=== PATIENT | male | born 1965 | race Caucasian/White ===

== ENCOUNTER 2017-10-07 11:43 | Emergency (ER) | payer OTHER, SELFPAY ==
[2017-10-07 11:46] VITALS: BP 146/87; PULSE 85; PULSE 87; RESP 14; TEMP 36.8; O2SAT 100; BMI 22.8
--- NOTE | 2017-10-07 12:07 | EKG12_ITS ---
Test Reason : CP Blood Pressure : / mmHG Vent. Rate : 087 BPM Atrial Rate : 087 BPM P-R Int : 146 ms QRS Dur : 080 ms QT Int : 362 ms P-R-T Axes : 082 069 066 degrees QTc Int : 435 ms Normal sinus rhythm Normal ECG Confirmed by KAREN SUMMERS ([id number]), editor index ALMA SAWYER ([id number]) on 10/12/2017 1:46:16 PM Referred By: TODD Confirmed By:KAREN SUMMERS
--- NOTE | 2017-10-07 12:07 | RAD_ITS ---
STUDY: X-RAY CHEST REASON FOR EXAM: Male, 51 years old. Chest pressure. TECHNIQUE: Single AP portable view of the chest. COMPARISON: Comparison is made with prior study dated January 15, 2017. FINDINGS: EKG electrodes are seen. Hyperinflation. The lungs are clear. There is no demonstrated pleural abnormality. Normal size heart. Normal mediastinum and catrachito. Normal visualized pulmonary arteries. Normal visualized aortic arch and descending thoracic aorta. Normal visualized thoracic spine. Normal visualized ribs, clavicles, and shoulders. There is no demonstrated abnormality of the visualized soft tissue structures of the upper abdomen. RAD/Chest 1 View (Portable) IMPRESSION: Hyperinflation. The lungs are clear. Electronically Signed: Raza Momin MD at 12:33 EST Tel [phone], Service support ,
[2017-10-07] MEDS: Aspirin 81 MG TAB.CHEW 324 MG PO (12:13)
[2017-10-07 12:42] LABS: Hematocrit 45.2 % (40-54); Hemoglobin 15.6 g/dl (13.0-16.5); Mean Corpuscular Volume 91.7 fL (80-94); Red Blood Count 4.93 M/mm3 (4.6-6.2); White Blood Count 5.8 K/mm3 (4.4-11.0)
[2017-10-07 12:43] LABS: Basophil% 0.3 % (0-1); Eosinophils% 1.9 % (0-5); Mean Corp Hgb Conc 34.5 g/gl (32-36); Mean Corpuscular Hgb 31.6 pg (27.0-32.0); Mean Platelet Vol. 8.9 fl (6.2-12.0); Monocyte% 5.7 % (0-10); Neutrophil # 2.97 X10^3/uL (2.7-7.7); Neutrophil % 51.1 % (47-70); Platelet Count 221 K/mm3 (150-450); RBC Distribution Width CV 12.2 % (11.6-14.6); RBC Distribution Width SD 40.9 fl (35.1-43.9)
[2017-10-07 12:44] LABS: Absolute Lymphocyte Count 2.38 X10^3/ul (0.83-4.51); Basophil# 0.02 X10^3/uL; Eosinophil# 0.11 X10^3/uL; Lymphocyte # 2.38 X10^3/ul (4.0); Monocyte# 0.33 X10^3/uL
[2017-10-07 12:46] LABS: Anion Gap 8 (5-15); BUN 19 mg/dL (7-18); Calcium,Total 9.3 mg/dL (8.5-10.1); Chloride 103 mmol/L (98-107); EST Glomerular Filtration Rate 83 mL/min (>60); Est Glom Filt Rate - Afr Amer 100 mL/min (>60); Estimated Creatinine Clearance 92.32 ml/min; Glucose 84 mg/dL (74-106); Potassium 3.3 mmol/L (3.5-5.1); Sodium Level 139 mmol/L (136-145)
[2017-10-07 13:02] VITALS: BP 112/70; PULSE 71; RESP 14; O2SAT 98
--- NOTE | 2017-10-07 13:07 | ED.DCSUM_ITS ---
- ER Visit Summary Date of Service: 10/07/17 Chief Complaint: Chest pain History of Present Illness: The patient is a 51 M senior past medical or surgical history. No prior history of DVT or PE. Patient states last night and today at rest he had chest discomfort. States it waxes and wanes. Nothing specifically makes it better or worse. It came on while taking a nap. He denies any recent exertional dyspnea or exertional chest pain. He denies any recent travel, surgery, mobilization, leg pain, swelling or hemoptysis. There is no pleuritic nature to the pain. He is never had a cardiac workup or stress test. There is no significant family history of cardiac disease or clotting disorders. He is a non-smoker. Dates that the pain in his lower sternum. It does not radiate to his neck, jaw or arms. Does not radiate to his back. Physical Examination: Well-appearing middle-age male. Vital signs are stable and he is afebrile. Pulse ox are percent on 2 L no hypoxia. H EENT exam unremarkable. Neck nontender no lymphadenopathy. No JVD. Lungs clear to auscultation bilaterally. Heart regular rate and rhythm no murmur. Chest wall is completely nontender. No ecchymosis or bruising. Extremities he moves all 4. Neurovascular intact. Equal symmetrical radial pulses. Calves are nontender without edema or cords. Abdomen soft nontender without peritoneal signs. Neurologically is awake alert without focal deficits. Back exam nontender. Test Results: CBC, BMP and troponin are unremarkable. His potassium slightly low at 3.3. EKG is a sinus rhythm a rate of 87 with no acute signs of PA or ischemia. A normal EKG. His chest x-ray is read as normal both by myself and the radiologist. Emergency Department Course and Treatment: Repeat exam at 1300 is doing well. Patient's pain is atypical. His pain is not exertional. I do not feel he needs to be admitted. Clinically I have a very low suspicion for this being cardiac disease he basically has no risk factors other than his age. We will up with his primary care physician for further evaluation and possible outpatient stress testing Treatment Plan: [] Disposition: Discharge Impression: Atypical chest pain of uncertain etiology This note was generated with [employer] dictation software. It may contain incorrect words, spelling, and punctuation that were not noted in review of the chart prior to signing ED Disposition - Plan for ED Patient: Chief Complaint: Chest Pain Referrals: Osmin Patel MD [Primary Care Provider] -
--- NOTE | 2017-10-07 13:07 | ED.DEP ---
ED Disposition - Plan for ED Patient: Disposition: Home or Assisted Living Chief Complaint: Chest Pain Instructions: ED Chest Pain Atypical Unkn Cause Referrals: Osmin Patle MD [Primary Care Provider] - As soon as possible Additional Instructions: Return to the ER if feeling worse chest pain or shortness of breath. Your workup was normal today. He should follow-up your primary care physician. They may choose to do an outpatient stress test.
== END 2017-10-07 13:20 | disposition home or self-care (01) ==
PROVIDERS: Emergency Provider Emergency Medicine; Family Provider Family Medicine; PCP Family Medicine
DX: R07.89 Other chest pain (principal)
CPT/HCPCS: 71045; 80048; 84484; 85025; 93005; 99285; A4216

== ENCOUNTER 2018-12-04 04:18 | Emergency (ER) | payer OTHER, SELFPAY ==
[2018-12-04 04:20] VITALS: BP 119/82; PULSE 94; RESP 16; TEMP 36.9; O2SAT 100; BMI 22.1
[2018-12-04 05:42] LABS: Mucous, Urine 0 SEEN /hpf (<or=2+)
[2018-12-04 05:51] LABS: Color, Urine Yellow (Yellow); Glucose, Dipstick Normal (Normal); Ketone-Dipstick Negative (Negative); Leukocyte Esterase-Dipstick 25 /ul (Negative); Nitrite-Dipstick Negative (Negative); Occult Blood-Urine 10 /ul (Negative); Protein-Dipstick Negative (Negative); Urine Bilirubin Dipstick Negative (Negative); Urine Clarity Clear (Clear); Urine Urobilinogen 1 mg/dl (Normal)
[2018-12-04 05:53] LABS: Bacteria RARE /hpf (None Seen); Red Blood Cells-Urine 0-5 SEEN /hpf (0-5); Squamous Epithelial Cells - UA 0-5 SEEN /hpf (0-5); White Blood Cells 0-5 SEEN /hpf (0-5)
--- NOTE | 2018-12-04 06:09 | ED.VISSUMM ---
- ER Visit Summary Date of Service: 12/04/18 Chief Complaint: Unable to empty bladder History of Present Illness: The patient is a 53 M who presents with urinary retention. Over the past 4 days he has had lower abdominal pain, burning with urination, frequency, urgency. He has had a fever up to 102. He also reports some nausea and headache. He complains of lower abdominal pain. No vomiting. No diarrhea. He was started on Bactrim for UTI. He denies any other medical history. He states that even after antibiotics he continues to have urinary frequency and urgency and feels like he is incompletely voiding. He states he is urinating small amounts every hour. Physical Examination: Afebrile vitals normal Moist mucous membranes Heart regular rate and rhythm Lungs are clear Abdomen soft he does have some suprapubic tenderness without guarding without rebound Alert Test Results: Urinalysis shows 25 leukocyte esterase and rare bacteria. Emergency Department Course and Treatment: Pereyra catheter was placed and patient had about 400 cc of urine out. His abdominal pain is improved although now he is complaining of a lot of burning in the penis from the catheter placement. He was given Pyridium. We will refer to urology. He understands to return for new or worsening symptoms. He was advised on signs and symptoms to monitor for. Patient discharged. Treatment Plan: [] Disposition: Discharge Impression: Urinary retention This note was generated with [employer] dictation software. It may contain incorrect words, spelling, and punctuation that were not noted in review of the chart prior to signing ED Disposition - Plan for ED Patient: Referrals: Osmin Patel MD [Primary Care Provider] -
--- NOTE | 2018-12-04 06:11 | ED.DEP ---
ED Disposition - Plan for ED Patient: Instructions: ED Retention Urinary Male Prescriptions: Phenazopyridine HCl [Pyridium] 200 mg PO BID PRN PRN #10 tab PRN Reason: Pain Referrals: Osmin Patel MD [Primary Care Provider] - Austin Ramsey MD [STAFF PHYSICIAN] -
[2018-12-04] MEDS: Phenazopyridine 95 MG Tablet 190 MG PO (06:33)
[2018-12-04 06:34] VITALS: BP 124/79; PULSE 73; RESP 18; O2SAT 99
--- NOTE | 2018-12-04 06:34 | ED.RN ---
THIS NURSE REVIEWED D/C INSTRUCTIONS WITH PT. PT VERBALIZED UNDERSTANDING OF INSTRUCTIONS. PT DENIES FURTHER NEEDS OR QUESTIONS AT THIS TIME.
--- NOTE | 2018-12-04 06:55 | CT_ITS ---
HISTORY: LEFT FLANK PAIN, CATHETER DUE TO DIFFICULTY VOIDING, CONSTIPATION. CATHETER IS PAINFUL EXAMINATION: CT Abdomen And Pelvis W/O Contrast TECHNIQUE: Helically acquired images were obtained of the abdomen and pelvis without oral or IV contrast as per renal stone protocol. A radiation dose optimization technique was used for this scan. IV Contrast dosage and agent: None. Oral contrast: None. COMPARISON: None FINDINGS: LOWER CHEST: No pleural effusion or pericardial effusion. Limited non-infusion exam. Allowing for this, negative liver, spleen, pancreas, gallbladder, and biliary system. Both kidneys are normal in position. 3 x 2 mm left UPJ stone with mild hydronephrosis proximal to the stone. The distal left ureter is nondilated. 2 mm calyceal stones at the upper pole of the left kidney in the mid pole of the right kidney. No hydronephrosis or hydroureter on the right. Adrenal glands are not enlarged. Abdominal aorta is normal in caliber. No ascites or retroperitoneal lymph enlargement. GI tract: Constipation pattern. No obstruction. Retrocecal normal appendix. Pelvis: Urinary bladder catheter in place with small urinary bladder volume. Mild prostatic enlargement. No free fluid or lymph enlargement. CT/Abdomen/Pelvis without Cont IMPRESSION: 1. Mild left hydronephrosis secondary to a 3 x 2 mm left UPJ stone. 2. Bilateral small intrarenal stones. No hydronephrosis on the right. 3. Mild prostatic enlargement with good position of the urinary catheter. 4. Constipation pattern. Individualized dose optimization techniques were used for this CT. at 0745 Reported and signed by: Tigre Sylvester MD Electronically Signed: Tigre Sylvester, at 7:44 EDT Tel , Service support ,
[2018-12-04] MEDS: Ondansetron 4 MG/2 ML Vial IV (07:01)
[2018-12-04] MEDS: Ketorolac 30 MG/ML Syringe IV (07:01)
[2018-12-04] MEDS: 0.9% Normal Saline 1,000 ML 999 ML IV (07:01)
[2018-12-04 07:09] LABS: Absolute Lymphocyte Count 1.63 X10^3/ul (0.83-4.51); Absolute Neutrophil Count 8.3 X10^3/uL (2.0-7.7); Basophil# 0.02 X10^3/uL; Basophil% 0.2 % (0-1); Eosinophil# 0.05 X10^3/uL; Eosinophils% 0.5 % (0-5); Hematocrit 40.3 % (40-54); Hemoglobin 14.2 g/dl (13.0-16.5); Lymphocyte # 1.63 X10^3/ul (4.0); Mean Corp Hgb Conc 35.2 g/gl (32-36); Mean Corpuscular Hgb 31.8 pg (27.0-32.0); Mean Corpuscular Volume 90.4 fL (80-94); Mean Platelet Vol. 8.9 fl (6.2-12.0); Monocyte# 0.85 X10^3/uL; Monocyte% 7.8 % (0-10); Neutrophil # 8.32 X10^3/uL (2.7-7.7); Neutrophil % 76.4 % (47-70); Platelet Count 194 K/mm3 (150-450); RBC Distribution Width CV 12.5 % (11.6-14.6); RBC Distribution Width SD 40.7 fl (35.1-43.9); Red Blood Count 4.46 M/mm3 (4.6-6.2); White Blood Count 10.9 K/mm3 (4.4-11.0)
[2018-12-04 07:10] LABS: POSITIVE COUNT NO; POSITIVE DIFFERENTIAL NO; POSITIVE MORPHOLOGY NO
[2018-12-04 07:25] LABS: Anion Gap 8 (5-15); BUN 12 mg/dL (7-18); BUN/Creat Ratio 12.4 RATIO (10-20); Calcium,Total 8.9 mg/dL (8.5-10.1); Chloride 103 mmol/L (98-107); Creatinine, Serum 0.97 mg/dL (0.70-1.30); EST Glomerular Filtration Rate 86 mL/min (>60); Est Glom Filt Rate - Afr Amer 104 mL/min (>60); Estimated Creatinine Clearance 89.99 ml/min; Glucose 111 mg/dL (74-106); Lipase 118 U/L (73-393); Potassium 3.8 mmol/L (3.5-5.1); Sodium Level 137 mmol/L (136-145)
[2018-12-04 07:26] LABS: AST(SGOT) 35 U/L (15-37); Alanine Aminotransfer ALT/SGPT 35 U/L (16-61); Albumin, Serum 3.8 g/dL (3.2-5.0); Alkaline Phosphatase 71 U/L (45-117); Globulin 4.1 g/dL (2.2-4.2); Protein, Total 7.9 g/dL (6.4-8.2)
[2018-12-04 07:42] VITALS: BP 127/86; PULSE 85; RESP 16; O2SAT 97
--- NOTE | 2018-12-04 08:16 | ED.DCSUM_ITS ---
- ER Visit Summary Date of Service: 12/04/18 This patient was checked out to me with labs and a CT flank pending. Test Results: CBC shows segmented neutrophils of 76 and lymphocytes 15. Chem-7 shows a glucose of 111. LFTs are normal. Lipase normal. UA has leukocytes and rare bacteria. CT flank shows a 3 x 2 mm left UPJ stone. It also shows an enlarged prostate. Emergency Department Course and Treatment: Patient is resting comfortably. His Pereyra catheter has put out approximately 700 cc of urine. Treatment Plan: Patient will be discharged with Pyridium, Flomax, Percocet, and Zofran. Instructed to follow-up Dr. Rhodes on 3-5 days for another exam. Return to the emergency department for any worsening symptoms. Disposition: To home in improved and stable condition. Impression: 1. Urinary retention. 2. Left ureterolithiasis. 3. BPH. This note was generated with [employer] dictation software. It may contain incorrect words, spelling, and punctuation that were not noted in review of the chart prior to signing ED Disposition - Plan for ED Patient: Disposition: Home or Assisted Living Instructions: ED Retention Urinary Male, ED Stone Renal W Colic Prescriptions: Oxycodone HCl/Acetaminophen [Percocet 5/325] 1 tablet PO Q6H PRN PRN 3 Days #12 tablet PRN Reason: Pain Ondansetron [Zofran Odt] 4 mg PO Q8H PRN PRN #10 tablet PRN Reason: Nausea Phenazopyridine HCl [Pyridium] 200 mg PO BID PRN PRN #10 tab PRN Reason: Pain Tamsulosin HCl [Flomax] 0.4 mg PO DAILY #30 capsule Referrals: Osmin Patel MD [Primary Care Provider] - Austin Ramsey MD [STAFF PHYSICIAN] - 3-5 Days
[2018-12-04 08:19] VITALS: BP 124/86; PULSE 85; RESP 16; O2SAT 98
== END 2018-12-04 08:28 | disposition home or self-care (01) ==
PROVIDERS: Emergency Provider Emergency Medicine; Family Provider Family Medicine; PCP Family Medicine
DX: N13.2 Hydronephrosis with renal and ureteral calculous obstruction (principal); N40.1 Benign prostatic hyperplasia with lower urinary tract symptoms; R33.8 Other retention of urine
CPT/HCPCS: 51702; 74176; 80048; 80076; 81001; 83690; 85025; 96361; 96374; 96375; 99285; J7030; A4216; J2405

== ENCOUNTER 2019-05-13 05:04 | Emergency (ER) | payer OTHER, SELFPAY ==
[2019-05-13 05:06] VITALS: BP 108/81; PULSE 69; RESP 20; TEMP 36.5; O2SAT 99; BMI 22.1
--- NOTE | 2019-05-13 05:14 | CT_ITS ---
STUDY: CT ABDOMEN AND PELVIS WITHOUT CONTRAST REASON FOR EXAM: Male, 53 years old. Left flank pain RADIATION DOSAGE (If Supplied By Facility): CTDIvol = ( 6.46 ) mGy, DLP = ( 316.10 ) mGycm TECHNIQUE: Transaxial images were obtained from the dome of the diaphragm to the symphysis pubis without oral contrast, and without intravenous contrast. Sagittal and coronal images were reconstructed. Individualized dose optimization techniques were used for this CT. COMPARISON: None. FINDINGS: The visualized lung bases are unremarkable. The visualized portions of the heart are within normal limits. Normal liver. Normal gallbladder and extrahepatic biliary system. Normal spleen. Normal pancreas. Normal bilateral adrenal glands. Normal right kidney. There is a 4 mm calculus within the distal left ureter at the ureterovesicular junction with mild to moderate left hydroureter. No significant hydronephrosis. There is bilateral tiny 1 to 2 mm nonobstructive renal calculi. Normal visualized stomach. Normal small intestine. Normal colon. The appendix is visualized and appears normal. Normal abdominal aorta. Normal inferior vena cava. Normal retroperitoneum. Normal urinary bladder. Normal abdominal wall. Normal osseous structures. CT/Abdomen/Pelvis without Cont IMPRESSION: 4 mm distal left ureteral calculus at the ureterovesicular junction causing mild to moderate left hydroureter. Multiple tiny bilateral nonobstructive nephrolithiasis. Electronically Signed: Ady Brown, at 6:07 EDT Tel , Service support ,
--- NOTE | 2019-05-13 05:15 | ED.VIS.GEN ---
History of Present Illness Chief Complaint: Flank Pain Detail of Chief Complaint: Left flank pain Informant: Patient, Family Onset: Days Current Severity: Moderate Maximum Severity: Moderate Narrative: Patient presents with left flank pain. He states 6 days ago he had severe pain for about 2 hours and it spontaneously resolved. Pain recurred late last evening. He has had some nausea and vomiting with severe pain. He was told in the past that kidney stones were noted on a CT scan as an incidental finding. He does not believe he has ever passed a kidney stone. Past Medical History - Allergies and Home Meds Allergies/Adverse Reactions: Allergies No Known Allergies Allergy (Verified 05/13/19 05:05) Primary Care Physician: Osmin Patel MD [Primary Care Provider] - Prior records reviewed: Yes Past Medical History: - - Reviewed Lives: Spouse/ Significant Other Smoking Status: Never smoker Review of Systems General: Denies: Chills, Fever Eyes: Denies: Visual changes - bilaterally ENT: Denies: Bilateral ear pain Cardiovascular: Denies: Chest pain Respiratory: Denies: Dyspnea Gastrointestinal: Reports: Abdominal pain - Left flank pain, Nausea, Vomiting Genitourinary: Denies: Dysuria, Hematuria Musculoskeletal: Reports: Back pain - Left flank Skin: Denies: Rash Neurological: Denies: Headache Endocrine: Denies: Polyuria, Polydipsia Hematologic: Denies: Easy bruising Allergy: Denies: Uticaria Physical Exam Vital Signs/Narrative: Vital Signs Temp Pulse Resp BP Pulse Ox 05/13/19 05:06 97.7 F L 69 20 H 108/81 H 99 Inital Vital Signs reviewed: Yes General: Well nourished, Well developed Head: Normocephalic ENT: Moist mucous membranes Neck: Supple Cardiovascular: Regular rate, Regular rhythm Respiratory: No distress, CTA bilaterally Abdomen: Soft, Nontender, Hypoactive bowel sounds Back: CVA tenderness - Left CVA tenderness Extremities: Nontender, No edema Skin: Normal color, No rash Neurological: Alert, Oriented x3 Psychological: Normal affect Diagnostic/Tx/Re-eval Impressions Abdomen/Pelvis CT 05/13/19 05:14 IMPRESSION: 4 mm distal left ureteral calculus at the ureterovesicular junction causing mild to moderate left hydroureter. Multiple tiny bilateral nonobstructive nephrolithiasis. Electronically Signed: Ady Brown, at 6:07 EDT Tel , Service support , 05/13/19 05:14 Abdomen/Pelvis without Cont [CT] Stat Laboratory Results 05/13/19 05/13/19 05/13/19 05:18 05:18 06:40 WBC 8.9 RBC 4.52 L Hgb 14.1 Hct 40.7 MCV 90.0 MCH 31.2 MCHC 34.6 RDW Std Deviation 38.8 RDW Coeff of Liana 11.9 Plt Count 181 MPV 9.0 Immature Gran % (Auto) 0.300 Neut % (Auto) 86.2 H Lymph % (Auto) 8.1 L [place] % (Auto) 4.8 Eos % (Auto) 0.3 Baso % (Auto) 0.3 Absolute Neuts (auto) 7.7 Absolute Lymphs (auto) 0.72 L Nucleated RBC % 0 Sodium 140 Potassium 3.9 Chloride 108 H Carbon Dioxide 25.0 Anion Gap 7 BUN 21 H Creatinine 1.10 Estim Creat Clear Calc 79.74 Est GFR (MDRD) Af Amer 89 Est GFR (MDRD) Non-Af 74 BUN/Creatinine Ratio 19.1 Glucose 117 H Calcium 9.1 Urine Color Yellow Urine Clarity Sl. Cloudy Urine pH 6.5 Ur Specific [place] 1.015 Urine Protein Negative Urine Glucose (UA) Normal Urine Ketones 5 H Urine Occult Blood 10 H Urine Nitrite Negative Urine Bilirubin Negative Urine Urobilinogen Normal Ur Leukocyte Esterase 500 H Urine RBC 0-5 SEEN Urine WBC 5-10 SEEN Ur Squamous Epith Cells 0 SEEN Urine Bacteria 1+ Urine Mucus 0 SEEN - Medical Decision Making Patient was given morphine, Toradol, Zofran, and IV fluids. This was followed by a second dose of morphine after CT scan. He does have evidence of a stone at the UVJ, nearly into the bladder. Patient will be given Percocet, Toradol, Zofran for home. He is already on Flomax. He will be given information for follow-up with Dr. Ramsey if needed. Pression: Left ureterolithiasis ED Disposition - Plan for ED Patient: Disposition: Home or Assisted Living Diagnosis: Ureterolithiasis Instructions: KIDNEY STONE w/ Colic Prescriptions: Oxycodone HCl/Acetaminophen [Percocet 5/325] 1 tablet PO Q6H PRN PRN 3 Days #12 tablet PRN Reason: Pain Ketorolac [Toradol] 10 mg PO Q6H PRN #14 tablet PRN Reason: Pain Score 1-10/10 Ondansetron [Zofran Odt] 4 mg PO Q8H PRN PRN #10 tablet PRN Reason: Nausea Referrals: Osmin Patel MD [Primary Care Provider] - Austin Ramsey MD [STAFF PHYSICIAN] - 3-5 Days if not improving
[2019-05-13] MEDS: 0.9% Normal Saline 1,000 ML 150 ML IV (05:22)
[2019-05-13] MEDS: Ondansetron 4 MG/2 ML Vial IV ×2 (05:23→06:54)
[2019-05-13] MEDS: Ketorolac 30 MG/ML Syringe IV (05:23)
[2019-05-13] MEDS: Morphine 4 MG/ML Syringe IV ×2 (05:24→06:51)
[2019-05-13 05:30] LABS: Absolute Lymphocyte Count 0.72 X10^3/uL (0.83-4.51); Absolute Neutrophil Count 7.7 X10^3/uL (2.0-7.7); Basophil# 0.03 X10^3/uL; Basophil% 0.3 % (0-1); Eosinophil# 0.03 X10^3/uL; Eosinophils% 0.3 % (0-5); Hematocrit 40.7 % (40-54); Hemoglobin 14.1 g/dL (13.0-16.5); Lymphocyte # 0.72 X10^3/ul (4.0); Lymphocyte % 8.1 % (19-41); Mean Corp Hgb Conc 34.6 g/dL (32-36); Mean Corpuscular Hgb 31.2 pg (27.0-32.0); Monocyte# 0.43 X10^3/uL; Monocyte% 4.8 % (0-10); NRBC Flagged by Analyzer 0 % (0-5); Neutrophil # 7.67 X10^3/uL (2.7-7.7); Neutrophil % 86.2 % (47-70); Platelet Count 181 K/mm3 (150-450); RBC Distribution Width CV 11.9 % (11.6-14.6); RBC Distribution Width SD 38.8 fl (35.1-43.9); Red Blood Count 4.52 M/mm3 (4.6-6.2); White Blood Count 8.9 K/mm3 (4.4-11.0)
[2019-05-13 05:38] LABS: Anion Gap 7 (5-15); BUN 21 mg/dL (7-18); BUN/Creat Ratio 19.1 RATIO (10-20); Calcium,Total 9.1 mg/dL (8.5-10.1); Chloride 108 mmol/L (98-107); EST Glomerular Filtration Rate 74 mL/min (>60); Est Glom Filt Rate - Afr Amer 89 mL/min (>60); Estimated Creatinine Clearance 79.74 ml/min; Glucose 117 mg/dL (74-106); Potassium 3.9 mmol/L (3.5-5.1); Sodium Level 140 mmol/L (136-145)
[2019-05-13 06:45] LABS: Mucous, Urine 0 SEEN /hpf (<or=2+); Squamous Epithelial Cells - UA 0 SEEN /hpf (0-5)
[2019-05-13 06:47] LABS: Color, Urine Yellow (Yellow); Glucose, Dipstick Normal (Normal); Ketone-Dipstick 5 mg/dl (Negative); Leukocyte Esterase-Dipstick 500 /ul (Negative); Nitrite-Dipstick Negative (Negative); Occult Blood-Urine 10 /ul (Negative); Protein-Dipstick Negative (Negative); Specific Gravity, Urine 1.015 (1.002-1.030); Urine Bilirubin Dipstick Negative (Negative); Urine Clarity Sl. Cloudy (Clear); Urine Urobilinogen Normal (Normal); Urine pH 6.5 (5.0 - 8.0)
[2019-05-13 06:53] LABS: Bacteria 1+ /hpf (None Seen); Red Blood Cells-Urine 0-5 SEEN /hpf (0-5); White Blood Cells 5-10 SEEN /hpf (0-5)
[2019-05-13 07:16] VITALS: BP 124/71; PULSE 68; RESP 16; O2SAT 99
[2019-05-13] MEDS: HYDROmorphone 0.5 MG/0.5 ML SYRINGE IV (07:17)
[2019-05-13] MEDS: proMETHazine 25 MG/ML Syringe 12.5 MG IV (07:17)
[2019-05-13 07:41] VITALS: BP 122/63; PULSE 71; RESP 16; O2SAT 98
== END 2019-05-13 07:43 | disposition home or self-care (01) ==
PROVIDERS: Emergency Provider Emergency Medicine; Family Provider Family Medicine; PCP Family Medicine
DX: N20.2 Calculus of kidney with calculus of ureter (principal)
CPT/HCPCS: 74176; 80048; 81001; 85025; 96361; 96374; 96375; 96376; 99283; J7030; A4216; J2405

== ENCOUNTER 2022-02-25 19:48 | Emergency (ER) | payer OTHER, SELFPAY ==
[2022-02-25 19:49] VITALS: BP 138/114; PULSE 105; RESP 16; TEMP 37.2; O2SAT 100; BMI 21.7
[2022-02-25 20:14] LABS: Bacteria 0 SEEN /hpf (None Seen); Mucous, Urine 0 SEEN /hpf (<or=2+); Squamous Epithelial Cells - UA 0 SEEN /hpf (0-5)
--- NOTE | 2022-02-25 20:16 | EDS_ITS ---
HPI History of Present Illness Chief Complaint: Complaint Informant: patient Pain Onset: Days Context: Gradual Onset Timing: Continuous Worsened by: Nothing Relieved by: Nothing Related History Enlarged Prostate: Yes Narrative Narrative: Patient presents with urinary retention that has been getting worse over the past few days. Patient states he is able to urinate small amounts. Patient states he feels pressure over his bladder. Patient states nothing makes it better nothing makes it worse. Patient admits to low-grade fevers up to 101.4 at home. Patient admits to nausea due to the pain. Patient denies any vomiting. Patient denies any burning when he urinates. Patient denies any back pain or flank pain. PFSH PFSH Medical History no medical history no medical history Home Medications cephalexin 500 mg capsule 500 mg PO Q6 #20 CAPSULES 02/25/22 [Rx Last Taken Unknown] Allergy/AdvReac Type Severity Reaction Status Date / Time No Known Allergies Allergy Verified 02/25/22 19:51 Family History no significant family his Surgical History no surgical history no surgical history Social History Smoking Status: Never smoker ROS ROS ED Constitutional Constitutional ED: Reports fever(s); Denies chills Eyes Eyes: Denies blurry vision or change in vision ENT ENT ED: Denies rhinorrhea or sore throat Cardiovascular Cardiovascular: Denies chest pain or palpitations Respiratory/Chest Respiratory/Chest: Denies cough or dyspnea Gastrointestinal Gastrointestinal: Reports nausea; Denies vomiting Genitourinary Genitourinary ED: Denies dysuria or hematuria Musculoskeletal Musculoskeletal: Denies back pain or neck pain Integumentary Denies abscess or rash Neurologic Neurologic: Denies headache(s) or weakness Allergic/Immunologic Allergic/Immunologic ED: Denies mouth swelling or urticaria EXAM Physical Exam Const Vital Signs: 02/25/22 19:49 Temperature 98.9 F Temperature Source Temporal Pulse Rate 105 H Respiratory Rate 16 Blood Pressure 138/114 H Blood Pressure Mean 122 Pulse Ox 100 Oxygen Delivery Method Room Air Positive well nourished and well developed General Appearance ED: well developed HEENT Reports moist mucous membranes Neck supple and no JVD Resp normal respiratory effort and clear to auscultation bilaterally Cardio regular rate, regular rhythm and no murmurs GI normal to inspection, nondistended, normoactive bowel sounds GI Narrative: There is a distended bladder. There is tenderness over the suprapubic area. There is no rebound or guarding noted. Palpation: soft and tender suprapubic; Negative for guarding Extremity normal to inspection General Extremety ED: Negative for edema or tenderness General Extremity: Negative for edema Neuro oriented x3, CN's II-XII intact bilaterally and no sensory deficits noted Sensorium / Orientation: alert Motor Exam: strength 5/5 throughout Psych mental status grossly normal Skin no rashes or lesions noted MDM MDM MDM Narrative Medical decision making narrative: Bladder scan shows more than 600 cc of urine in his bladder. Patient was given Urojet and Pereyra catheter. Patient was given a leg bag. Urinalysis was obtained and showed a leukocyte esterase of 500 with 25-50 white blood cells. Urine culture was ordered. Patient was given a dose of Keflex here. Patient was given a prescription for Keflex. Patient was instructed to follow-up with his urologist in 2 to 3 days for reevaluation. Patient understood and was agreeable with the plan. All questions were answered. Lab Data Labs: Laboratory Results - last 24 hr 02/25/22 20:05 Urine Color Yellow Urine Clarity Clear Urine pH 8.0 Ur Specific [place] 1.010 Urine Protein 30 H Urine Glucose (UA) Normal Urine Ketones Negative Urine Occult Blood 10 H Urine Nitrite Negative Urine Bilirubin Negative Urine Urobilinogen Normal Ur Leukocyte Esterase 500 H Urine RBC 0-5 SEEN Urine WBC 25-50 SEEN Ur Squamous Epith Cells 0 SEEN Urine Bacteria 0 SEEN Urine Mucus 0 SEEN Discharge Plan Triage Chief Complaint: Complaint ED Provider: Carlos Nieto Dx/Rx/DC Orders Clinical Impression: Acute urinary retention, Urinary tract infection Instructions: ED Pereyra Catheter, Care, ED Urinary Retention, Male, ED Bladder Infection, Male (Adult), ED Urinary Tract Infections in Men Prescriptions: New cephalexin [cephalexin] 500 mg capsule 500 mg PO Q6 Qty: 20 0RF Primary Care Provider: Osmin Patel Referrals: Austin Ramsey MD [STAFF PHYSICIAN] - 3-5 Days Osmin Patel MD [Primary Care Provider] - 3-5 Days Disposition Disposition: Home, Self Care
[2022-02-25 20:28] LABS: Color, Urine Yellow (Yellow); Glucose, Dipstick Normal (Normal); Ketone-Dipstick Negative (Negative); Leukocyte Esterase-Dipstick 500 /ul (Negative); Nitrite-Dipstick Negative (Negative); Occult Blood-Urine 10 /ul (Negative); Protein-Dipstick 30 mg/dl (Negative); Urine Bilirubin Dipstick Negative (Negative); Urine Clarity Clear (Clear); Urine Urobilinogen Normal (Normal)
[2022-02-25] MEDS: Lidocaine Jelly 2% 20 ML Syringe (URO-JET) 1 APPLIC TOPICAL (20:29)
[2022-02-25 20:42] LABS: Red Blood Cells-Urine 0-5 SEEN /hpf (0-5); White Blood Cells 25-50 SEEN /hpf (0-5)
[2022-02-25 21:49] VITALS: RESP 20
[2022-02-25 21:51] VITALS: RESP 18
[2022-02-25] MEDS: Cephalexin 500 MG Capsule PO (21:54)
== END 2022-02-25 22:03 | disposition home or self-care (01) ==
PROVIDERS: Emergency Provider Emergency Medicine; PCP Family Medicine; Visit Provider Emergency Medicine
DX: N39.0 Urinary tract infection, site not specified (principal); R33.9 Retention of urine, unspecified
CPT/HCPCS: 81001; 87086; 87088; 99283

== ENCOUNTER 2022-02-25 22:58 | Emergency (ER) | payer OTHER, SELFPAY ==
[2022-02-25 22:59] VITALS: BP 114/73; PULSE 108; RESP 15; TEMP 37.2; O2SAT 100; BMI 21.7
[2022-02-25] MEDS: Ondansetron 4 MG/2 ML Vial IV (23:30)
[2022-02-25] MEDS: Morphine 4 MG/ML Syringe IV (23:32)
[2022-02-25 23:42] LABS: Absolute Lymphocyte Count 1.19 X10^3/uL (0.83-4.51); Basophil# 0.04 X10^3/uL; Basophil% 0.3 % (0-1); Eosinophil# 0.01 X10^3/uL; Eosinophils% 0.1 % (0-5); Hematocrit 41.5 % (40-54); Hemoglobin 14.5 g/dL (13.0-16.5); Lymphocyte # 1.19 X10^3/ul (0.83-4.51); Lymphocyte % 8.3 % (19-41); Mean Corp Hgb Conc 34.9 g/dL (32-36); Mean Corpuscular Hgb 31.5 pg (27.0-32.0); Mean Corpuscular Volume 90.2 fL (80-94); Mean Platelet Vol. 9.2 fl (6.2-12.0); Monocyte# 1.06 X10^3/uL; Monocyte% 7.4 % (0-10); NRBC Flagged by Analyzer 0 % (0-5); Neutrophil # 11.98 X10^3/uL (2.7-7.7); Neutrophil % 83.3 % (47-70); Platelet Count 202 K/mm3 (150-450); RBC Distribution Width CV 11.6 % (11.6-14.6); RBC Distribution Width SD 38.1 fl (35.1-43.9); White Blood Count 14.4 K/mm3 (4.4-11.0)
--- NOTE | 2022-02-25 23:59 | EDS_ITS ---
HPI History of Present Illness Chief Complaint: Complaint Narrative Narrative: 56-year-old male was seen earlier today for urinary retention presenting concerned that he might have retention still. He complains of pain at the tip of his penis. He states Pereyra catheter is leaking. There is urine in his Pereyra catheter bag. He was started on Keflex for UTI earlier. He does not have fever, chills, nausea, vomiting. PFSH PFSH Home Medications cephalexin 500 mg capsule 500 mg PO Q6 #20 CAPSULES 02/25/22 [Rx Last Taken Unknown] ondansetron 4 mg disintegrating tablet 4 mg PO Q8H PRN PRN Nausea #10 tabs 02/25/22 [Rx Last Taken Unknown] hydrocodone-acetaminophen 5-325mg 5mg-325mg 1 tab PO Q6H PRN pain 3 days #10 tabs 02/26/22 [Rx Last Taken Unknown] Allergy/AdvReac Type Severity Reaction Status Date / Time No Known Allergies Allergy Verified 02/25/22 19:51 Social History Smoking Status: Never smoker ROS ROS ED Constitutional Constitutional ED: Denies chills or fever(s) Eyes Eyes: Denies change in vision ENT ENT ED: Denies rhinorrhea or sore throat Cardiovascular Cardiovascular: Denies chest pain or palpitations Respiratory/Chest Respiratory/Chest: Denies cough or dyspnea Gastrointestinal Gastrointestinal: Denies abdominal pain, nausea or vomiting Genitourinary Genitourinary ED: Reports dysuria and other Details: Penile pain Musculoskeletal Musculoskeletal: Denies arthralgias or back pain Integumentary Denies abscess Neurologic Neurologic: Denies headache(s) Psychiatric Psychiatric: Denies anxiety or depression EXAM Physical Exam Const Vital Signs: 02/25/22 22:59 02/26/22 00:32 Temperature 99.0 F Temperature Source Temporal Pulse Rate 108 H 89 Respiratory Rate 15 15 Blood Pressure 114/73 121/76 H Blood Pressure Mean 86 91 Pulse Ox 100 97 Oxygen Delivery Method Room Air Room Air Positive well nourished General Appearance ED: NAD; Negative for pallor HEENT normocephalic and atraumatic Eyes PERRL and EOMs intact bilaterally Resp normal respiratory effort and clear to auscultation bilaterally Cardio regular rate Rate: tachycardic GI GI Narrative: Pereyra catheter appears to be in place. There is no leakage around the Pereyra catheter at the tip of the penis. No rashes. No testicular pain. There is about 150 cc of yellow urine in the Pereyra catheter bag. Back/Spine no CVA tenderness Neuro oriented x3 and CN's II-XII intact bilaterally Sensorium / Orientation: alert, oriented to person, oriented to place and oriented to time Motor Exam: strength 5/5 throughout Psych mental status grossly normal Thought Process: normal thought process Skin General Skin Exam: Negative for jaundice or pallor MDM MDM MDM Narrative Medical decision making narrative: 56-year-old male presenting with pain and concerned his Pereyra catheter is blocked. There is 150 cc of yellow urine in the Pereyra catheter bag. Penis is normal. There is no leakage around the Pereyra catheter insertion site. Pereyra catheter was irrigated and flushes well. He had UA done earlier and is treated for UTI with Keflex. Patient requested something for pain and was given morphine and Zofran. I did obtain blood work and his CBC shows a slight leukocytosis of 14.4. Renal function is normal. Total bilirubin slightly elevated 1.4. Patient comfortable after receiving pain medication. I will provide him with something for pain for home. Discharged in stable condition. Impression: 1. Acute urinary retention 2. UTI Lab Data Attestation: I reviewed the patient's lab results. Labs: Laboratory Results - last 24 hr 02/25/22 02/25/22 23:35 23:35 WBC 14.4 H RBC 4.60 Hgb 14.5 Hct 41.5 MCV 90.2 MCH 31.5 MCHC 34.9 RDW Std Deviation 38.1 RDW Coeff of L[place] 11.6 Plt Count 202 MPV 9.2 Immature Gran % (Auto) 0.600 Neut % (Auto) 83.3 H Lymph % (Auto) 8.3 L [place] % (Auto) 7.4 Eos % (Auto) 0.1 Baso % (Auto) 0.3 Absolute Neuts (auto) 12.0 H Absolute Lymphs (auto) 1.19 Nucleated RBC % 0 Sodium 129 L Potassium 4.1 Chloride 97 L Carbon Dioxide 25.0 Anion Gap 7 BUN 12 Creatinine 1.02 Estim Creat Clear Calc 81.03 Est GFR (MDRD) Af Amer 96 Est GFR (MDRD) Non-Af 80 BUN/Creatinine Ratio 11.8 Glucose 153 H Calcium 9.7 Total Bilirubin 1.40 H AST 22 ALT 28 Alkaline Phosphatase 76 Total Protein 8.2 Albumin 3.8 Globulin 4.4 H Albumin/Globulin Ratio 0.9 Discharge Plan Triage Chief Complaint: Complaint ED Provider: Andrés Shaikh Dx/Rx/DC Orders Clinical Impression: Urinary tract infection, Acute urinary retention Instructions: ED Urinary Retention, Male, ED Bladder Infection, Male (Adult) Prescriptions: New hydrocodone-acetaminophen 5-325 mg tablet 1 tab PO Q6H PRN (Reason: pain) 3 Days Qty: 10 0RF No Action cephalexin [cephalexin] 500 mg capsule 500 mg PO Q6 Qty: 20 0RF ondansetron [ondansetron] 4 mg tablet,disintegrating 4 mg PO Q8H PRN PRN (Reason: Nausea) Qty: 10 0RF Primary Care Provider: Osmin Patel Referrals: Osmin Patel MD [Primary Care Provider] - Disposition Disposition: Home, Self Care
[2022-02-26 00:09] LABS: ALB/GLOB Ratio 0.9 RATIO (0.9-2.4); AST(SGOT) 22 U/L (15-37); Alanine Aminotransfer ALT/SGPT 28 U/L (16-61); Albumin, Serum 3.8 g/dL (3.2-5.0); Alkaline Phosphatase 76 U/L (45-117); Anion Gap 7 (5-15); BUN 12 mg/dL (7-18); BUN/Creat Ratio 11.8 RATIO (10-20); Calcium,Total 9.7 mg/dL (8.5-10.1); Chloride 97 mmol/L (98-107); Creatinine, Serum 1.02 mg/dL (0.70-1.30); EST Glomerular Filtration Rate 80 mL/min (>60); Est Glom Filt Rate - Afr Amer 96 mL/min (>60); Estimated Creatinine Clearance 81.03 ml/min; Globulin 4.4 g/dL (2.2-4.2); Glucose 153 mg/dL (74-106); Potassium 4.1 mmol/L (3.5-5.1); Protein, Total 8.2 g/dL (6.4-8.2); Sodium Level 129 mmol/L (136-145)
[2022-02-26 00:32] VITALS: BP 121/76; PULSE 89; RESP 15; O2SAT 97
[2022-02-26] MEDS: Ondansetron ODT 4 MG Tablet PO (00:48)
[2022-02-26] MEDS: oxyCODONE 5 MG Tablet PO (00:48)
[2022-02-26 01:04] VITALS: BP 121/76; PULSE 89; RESP 15; O2SAT 97
== END 2022-02-26 01:05 | disposition home or self-care (01) ==
PROVIDERS: Emergency Provider Student in an Organized Health Care Education/Training Program; PCP Family Medicine; Visit Provider Student in an Organized Health Care Education/Training Program
DX: T83.89XA Other specified complication of genitourinary prosthetic devices, implants and grafts, initial encounter (principal); N39.0 Urinary tract infection, site not specified; R33.9 Retention of urine, unspecified; X58.XXXA Exposure to other specified factors, initial encounter
CPT/HCPCS: 80053; 85025; 96374; 96375; 99283; A4216; J2405

== ENCOUNTER 2022-02-28 18:03 | Emergency (ER) | payer OTHER, SELFPAY ==
[2022-02-28 18:04] VITALS: BP 169/92; PULSE 101; RESP 18; TEMP 36.6; O2SAT 100; BMI 21.7
--- NOTE | 2022-02-28 18:08 | EX.ED.DYSGE1 ---
HPI <MAYUR Masters - Last Filed: 02/28/22 18:29> History of Present Illness Chief Complaint: Pereyra C/O Narrative Narrative: Patient had urinary retention and had a Pereyra placed on 02/25. He was prescribed Keflex for UTI. He came back the same day concerned it might still be retaining but it flushed easily. Today it is draining well with no change in the color of the urine. However he readjusted tubing yesterday and now whenever he sits down on the toilet to have a bowel movement he feels painful sensation in his penis and suprapubic area. The tip of his penis is also uncomfortable when he walks. He is concerned something may be wrong. He was prescribed Percocet here but has not taken them because he does not want to be constipated. He has an appointment with Dr. Ramsey this week. PFSH <MAYUR Masters - Last Filed: 02/28/22 18:29> [facility] Home Medications cephalexin 500 mg capsule 500 mg PO Q6 #20 CAPSULES 02/25/22 [Rx Last Taken Unknown] ondansetron 4 mg disintegrating tablet 4 mg PO Q8H PRN PRN Nausea #10 tabs 02/25/22 [Rx Last Taken Unknown] hydrocodone-acetaminophen 5-325mg 5mg-325mg 1 tab PO Q6H PRN pain 3 days #10 tabs 02/26/22 [Rx Last Taken Unknown] Allergy/AdvReac Type Severity Reaction Status Date / Time No Known Allergies Allergy Verified 02/28/22 18:06 Social History Smoking Status: Never smoker ROS <MAYUR Masters - Last Filed: 02/28/22 18:29> ROS ED ROS Narrative Constitutional: Negative for fever, chills, malaise. Eyes: Negative for visual change. ENT: Negative for sore throat, ear pain, rhinorrhea. CVS: Negative for palpitations, chest pain, syncope. Respiratory: Negative for shortness of breath, cough, orthopnea. GI: Negative for abdominal pain, nausea, vomiting, diarrhea, constipation, melena, hematochezia. : Negative for dysuria, hematuria or frequency. Neuro: Negative for headache, motor/sensory dysfunction. Skin: Negative for rash, abscess, or wound. Musc: Negative for joint pain, swelling, trauma. Heme: Negative for easy bruising, bleeding, lymphadenopathy. EXAM <MAYUR Masters - Last Filed: 02/28/22 18:29> Physical Exam Narrative Exam Narrative: CONST: Patient sitting in no acute distress. EYES: Normal inspection. NECK: Normal inspection. RESP: No respiratory distress, CTAB. CVS: Regular rate and rhythm, no murmur, no gallop. ABD: Soft and nontender, no guarding or rebound, nondistended. SKIN: Color normal, no rash, warm, dry, intact. EXTREMITIES: Normal appearance, no pedal edema. NEURO: Oriented x4. PSYCH: Normal affect. Const Vital Signs: 02/28/22 18:04 Temperature 97.9 F Temperature Source Temporal Pulse Rate 101 H Respiratory Rate 18 Blood Pressure 169/92 H Blood Pressure Mean 117 Pulse Ox 100 Oxygen Delivery Method Room Air <Dr. Damien Petit MD - Last Filed: 02/28/22 18:30> Physical Exam Const Vital Signs: 02/28/22 18:04 Temperature 97.9 F Temperature Source Temporal Pulse Rate 101 H Respiratory Rate 18 Blood Pressure 169/92 H Blood Pressure Mean 117 Pulse Ox 100 Oxygen Delivery Method Room Air MDM <MAYUR Masters - Last Filed: 02/28/22 18:29> [facility] Narrative Medical decision making narrative: Patient had readjusted his indwelling Pereyra and it was not secured correctly. He has been having pain in his suprapubic area and the tip of his penis. The nurse resecured it appropriately and he feels improvement. Bladder scan shows 26 cc so it is draining appropriately. He is already taking Keflex for UTI. Patient was discharged and will follow up with urology this week as scheduled. 1. Complication of indwelling Pereyra catheter <Dr. Damien Petit MD - Last Filed: 02/28/22 18:30> [facility] Narrative Medical decision making narrative: Patient had readjusted his indwelling Pereyra and it was not secured correctly. He has been having pain in his suprapubic area and the tip of his penis. The nurse resecured it appropriately and he feels improvement. Bladder scan shows 26 cc so it is draining appropriately. He is already taking Keflex for UTI. Patient was discharged and will follow up with urology this week as scheduled. 1. Complication of indwelling Pereyra catheter I have personally performed a face to face assessment of the patient and have reviewed the ABIGAIL Note. I performed a substantive portion of the visit including all aspects of the following. My low findings include: History is [56-year-old male had urinary retention and a UTI the other day when seen in the emergency department on Wednesday. A Pereyra catheter placed. He states catheter is uncomfortable. Nurses reevaluated his catheter adjusted the placement of it and now is feeling much better. He will be discharged to home. There is clear yellow urine in his Pereyra bag.] Exam is [middle-aged male no acute distress. Vital signs stable afebrile. Lungs are clear. Heart regular rhythm. Abdomen soft, nontender, nondistended normal bowel sounds no peritoneal signs. Nondistended bladder. Nurses did a bladder scan only had about 20 cc in his bladder. Moving all 4 extremities. No edema.] Medical Decision Making [uncomfortable Pereyra due to of placement. Patient be discharged home.] Other additions or changes: [None] Discharge Plan Triage Chief Complaint: Pereyra C/O ED Midlevel Provider: Renita Mccabe ED Provider: Damien Petit Dx/Rx/DC Orders Clinical Impression: Complication of Pereyra catheter Instructions: Discharge Instructions Caring ... Prescriptions: No Action cephalexin [cephalexin] 500 mg capsule 500 mg PO Q6 Qty: 20 0RF ondansetron [ondansetron] 4 mg tablet,disintegrating 4 mg PO Q8H PRN PRN (Reason: Nausea) Qty: 10 0RF hydrocodone-acetaminophen 5-325 mg tablet 1 tab PO Q6H PRN (Reason: pain) 3 Days Qty: 10 0RF Primary Care Provider: Osmin Patel Referrals: Osmin Patel MD [Primary Care Provider] - Activity Restrictions/Additional Instructions: Keep taking your antibiotics and follow-up with urology as scheduled Disposition Disposition: Home, Self Care
--- NOTE | 2022-02-28 18:24 | ED.RN ---
ASSESSED FIELDS CATHETER. PT REPORTS PAIN FROM PELVIC AREA DOWN THROUGH PENIS. CATHETER NOT IN CATH SECURE PROPERLY PUTTING TENSION TO CATHETER AND PULLING. EDUCATION REGARDING PROPER USE OF CATH SECURE. ATTACHED CORRECTLY PT IMMEDIATELY REPORTS IMPROVEMENT IN DISCOMFORT. ASSISTED TO BATHROOM AT THIS TIME.
== END 2022-02-28 18:36 | disposition home or self-care (01) ==
LOC: ED 18:30
PROVIDERS: Emergency Provider Emergency Medicine; PCP Family Medicine; Visit Provider Emergency Medicine
DX: T83.091A Other mechanical complication of indwelling urethral catheter, initial encounter (principal); Z79.899 Other long term (current) drug therapy; X58.XXXA Exposure to other specified factors, initial encounter
CPT/HCPCS: 99282

== ENCOUNTER 2024-05-01 00:18 | Emergency (ER) | payer SELFPAY, OTHER ==
[2024-05-01 00:21] VITALS: BP 148/87; PULSE 104; RESP 18; TEMP 36.4; O2SAT 97
--- NOTE | 2024-05-01 00:38 | EX.ED.DYSGE1 ---
HPI History of Present Illness Chief Complaint: Complaint Informant: patient Narrative Narrative: 58-year-old male presenting to the emergency room with concerns for urinary retention. Patient states that he has a history of BPH and was following Dr. Ramsey. Last week he decided to discontinue Flomax to see if he would be able to live without it. He decided about 4 days ago to go back on his been taking it regularly since. He notes that yesterday and today he feels suprapubic pressure and has to push on his abdomen in order to fully urinate. States his mouth feels dry. He has no known renal disease. He denies any blood in the urine foul-smelling urine or cloudiness. He denies any bowel symptoms PFSH PFSH Medical History Enlarged prostate Kidney stone Home Medications ?Medication ?Instructions ?Recorded ?Last Taken ?Type cephalexin 500 mg capsule 500 mg PO Q6 #20 CAPSULES 02/25/22 Unknown Rx ondansetron 4 mg disintegrating 4 mg PO Q8H PRN PRN Nausea #10 tabs 02/25/22 Unknown Rx tablet hydrocodone-acetaminophen 5-325mg 1 tab PO Q6H PRN pain 3 days #10 02/26/22 Unknown Rx 5mg-325mg tabs Allergy/AdvReac Type Severity Reaction Status Date / Time No Known Allergies Allergy Verified 02/28/22 18:06 Social History Smoking Status: Never smoker ROS ROS ED Constitutional Constitutional ED: Denies chills, fever(s) or weight loss Eyes Eyes: Denies change in vision or diplopia ENT ENT ED: Denies ear pain, rhinorrhea or sore throat Cardiovascular Cardiovascular: Denies chest pain, orthopnea, palpitations or racing heartbeat Respiratory/Chest Respiratory/Chest: Denies cough, dyspnea or orthopnea Gastrointestinal Gastrointestinal: Denies abdominal pain, diarrhea, nausea or vomiting Genitourinary Genitourinary ED: Reports other Details: See history of present illness ; Denies dysuria, hematuria or urinary frequency Musculoskeletal Musculoskeletal: Denies arthralgias, back pain, myalgias or neck pain Integumentary Denies abscess or rash Neurologic Neurologic: Denies headache(s) or weakness Psychiatric Psychiatric: Denies anxiety, depression, suicidal ideation or suicidal thoughts Endocrine Endocrinology: Denies polydipsia, polyphagia or polyuria Allergic/Immunologic Allergic/Immunologic ED: Denies mouth swelling, tongue swelling or urticaria EXAM Physical Exam Const Vital Signs: 05/01/24 00:21 05/01/24 02:00 05/01/24 02:23 Temperature 97.6 F L 98.7 F Temperature Source Oral Pulse Rate 104 H 70 Respiratory Rate 18 18 Blood Pressure 148/87 H Blood Pressure Mean 107 Pulse Ox 97 98 Oxygen Delivery Method Room Air Room Air Positive well nourished and well developed General Appearance ED: well developed HEENT Reports normocephalic, head/scalp atraumatic and moist mucous membranes Eyes PERRL and EOMs intact bilaterally Neck no lymphadenopathy, supple and no JVD Resp normal respiratory effort and clear to auscultation bilaterally Cardio regular rate, regular rhythm and no murmurs GI normal to inspection, nondistended, normoactive bowel sounds and non-tender Palpation: soft Back/Spine no CVA tenderness and normal ROM Extremity normal to inspection General Extremety ED: Negative for edema General Extremity: Negative for edema Neuro oriented x3 and CN's II-XII intact bilaterally Sensorium / Orientation: alert Motor Exam: strength 5/5 throughout Psych mental status grossly normal Mood & Affect: Negative for depressed or tearful Skin no rashes or lesions noted and no wounds MDM MDM MDM Narrative Medical decision making narrative: Differential diagnosis includes but not limited to acute urinary retention UTI urethritis kidney stone diverticulitis Bedside ultrasound does not demonstrate a distended bladder. In fact the bladder looks very decompressed. Patient was able to drink some fluids and urinate in the urine specimen is normal. We talked about further workup including blood work and CT scanning. However he says he has an appointment tomorrow morning with urology and would prefer to wait as that he does not have good health insurance. I do think that that is a reasonable plan. His abdomen does not appear surgical in nature. I advised him that he can return if he worsens or has concerns. Patient is comfortable with this plan History & Record Review Discussion w/independent historian: Patient Lab Data Attestation: I reviewed the patient's lab results. Labs: Laboratory Results - last 24 hr 05/01/24 01:57 Urine Color Yellow Urine Clarity Clear Urine pH 6.0 Ur Specific [place] 1.015 Urine Protein 15 H Urine Glucose (UA) Normal Urine Ketones 50 H Urine Occult Blood Negative Urine Nitrite Negative Urine Bilirubin Negative Urine Urobilinogen Normal Ur Leukocyte Esterase Negative Urine RBC 0 SEEN Urine WBC 0 SEEN Ur Squamous Epith Cells 0 SEEN Urine Bacteria 0 SEEN Urine Mucus 0 SEEN Discharge Plan Triage Chief Complaint: Complaint ED Provider: Puneet Valencia Dx/Rx/DC Orders Clinical Impression: Acute suprapubic pain, Benign prostatic hyperplasia Instructions: Benign Prostatic Hyperplasia Prescriptions: No Action cephalexin [cephalexin] 500 mg capsule 500 mg PO Q6 Qty: 20 0RF ondansetron [ondansetron] 4 mg tablet,disintegrating 4 mg PO Q8H PRN PRN (Reason: Nausea) Qty: 10 0RF hydrocodone-acetaminophen 5-325 mg tablet 1 tab PO Q6H PRN (Reason: pain) 3 Days Qty: 10 0RF Primary Care Provider: Osmin Patel Referrals: Austin Ramsey MD [Med Staff - Active Staff] - Keep Stephanie appointment Osmin Patel MD [Primary Care Provider] - Print Language: Cam[place] Disposition Disposition: Home, Self Care Discharge Date/Time: 05/01/24 02:24
[2024-05-01 02:00] VITALS: PULSE 70; RESP 18; O2SAT 98
[2024-05-01 02:02] LABS: Bacteria 0 SEEN /hpf (None Seen); Mucous, Urine 0 SEEN /hpf (<or=2+); Red Blood Cells-Urine 0 SEEN /hpf (0-5); Squamous Epithelial Cells - UA 0 SEEN /hpf (0-5); White Blood Cells 0 SEEN /hpf (0-5)
[2024-05-01 02:04] LABS: Color, Urine Yellow (Yellow); Glucose, Dipstick Normal (Normal); Ketone-Dipstick 50 mg/dl (Negative); Leukocyte Esterase-Dipstick Negative /ul (Negative); Nitrite-Dipstick Negative (Negative); Occult Blood-Urine Negative /ul (Negative); Protein-Dipstick 15 mg/dl (Negative); Specific Gravity, Urine 1.015 (1.002-1.030); Urine Bilirubin Dipstick Negative (Negative); Urine Clarity Clear (Clear); Urine Urobilinogen Normal (Normal)
[2024-05-01 02:23] VITALS: TEMP 37.1
== END 2024-05-01 02:24 | disposition home or self-care (01) ==
PROVIDERS: Emergency Provider Emergency Medicine; PCP Family Medicine; Visit Provider Emergency Medicine
DX: R10.2 Pelvic and perineal pain (principal); N40.0 Benign prostatic hyperplasia without lower urinary tract symptoms
CPT/HCPCS: 81001; 99282

== ENCOUNTER 2024-05-05 08:05 | Emergency (ER) | payer OTHER, SELFPAY ==
[2024-05-05 08:07] VITALS: BP 147/101; PULSE 103; RESP 16; TEMP 36.3; O2SAT 99; BMI 20.3
--- NOTE | 2024-05-05 08:35 | CT_ITS ---
STUDY: CT ABDOMEN AND PELVIS WITH CONTRAST REASON FOR EXAM: Male, 58 years old. abd pain RADIATION DOSAGE (If Supplied By Facility): CTDIvol = ( 10.11 ) mGy, DLP = ( 695.41 ) mGycm TECHNIQUE: Transaxial images were obtained from the dome of the diaphragm to the symphysis pubis without oral contrast. IV 100mL Isovue-300 was administered. Sagittal and coronal images were reconstructed. Individualized dose optimization techniques were used for this CT. COMPARISON: Comparison is made with prior study May 13, 2019. FINDINGS: Minimal increased linear markings at the lung bases suggestive of underlying atelectasis. 2 mm cyst is seen in the anterior dome of the right lobe of the liver. A 2 mm cyst is also seen in the lateral aspect of the midportion of the right lobe of the liver. The visualized portions of the heart are within normal limits. Normal liver. Normal gallbladder and extrahepatic biliary system. Normal spleen. Normal pancreas. Normal bilateral adrenal glands. Normal right kidney. Normal left kidney. Normal visualized stomach. Normal small intestine. There are multiple colonic diverticula consistent with diverticulosis. Questionable mild sigmoid diverticulitis. Moderate amount of fecal material is seen throughout the colon. There is non-visualization of the appendix. Normal abdominal aorta. Normal inferior vena cava. Normal retroperitoneum. Normal urinary bladder. Minimal amount of free fluid is seen in the right hemipelvis. Central prostatic calcification. The prostate measures 3.1 cm x 5.6 cm. Normal abdominal wall. Normal osseous structures. CT/Abdomen/Pelvis W IV Cont ONLY IMPRESSION: Sigmoid diverticulosis and possible mild sigmoid diverticulitis. Small amount of free fluid is seen in the right hemipelvis. Electronically Signed: Raza Momin MD at 9:28 EDT ,
--- NOTE | 2024-05-05 08:36 | EX.ED.GUMALE ---
HPI History of Present Illness Chief Complaint: Complaint Detail of Chief Complaint: Abdominal cramping Informant: patient Pain Onset: Days Context: Gradual Onset Timing: Intermittent Current Severity: Gone Maximum Severity: Mild Narrative Narrative: 58-year-old male history of prior urinary retention slightly enlarged prostate and kidney stones. Was seen in the emergency department the other day had a negative bladder scan and negative UA. Is followed up with Dr. Cota. They talked about getting an outpatient CAT scan which she said he had to wait about 10 days and like to have that done today. Is complaining of some mild abdominal cramping. No dysuria or hematuria. No fever. No vomiting no diarrhea. Prior similar symptoms: Yes Recent Illness/Hospitalization: No PFSH PFSH Medical History Enlarged prostate Kidney stone Home Medications ?Medication ?Instructions ?Recorded ?Last Taken ?Type ondansetron 4 mg disintegrating 4 mg PO Q8H PRN PRN Nausea #10 tabs 02/25/22 Unknown Rx tablet hydrocodone-acetaminophen 5-325mg 1 tab PO Q6H PRN pain 3 days #10 02/26/22 Unknown Rx 5mg-325mg tabs amoxicillin 875 mg-potassium 1 tab PO BID 10 days #20 tabs 05/05/24 Unknown Rx clavulanate 125 mg tablet tamsulosin 0.4 mg capsule 0.4 mg PO QHS 05/05/24 Unknown History Allergy/AdvReac Type Severity Reaction Status Date / Time No Known Allergies Allergy Verified 05/05/24 08:07 Social History Smoking Status: Never smoker ROS ROS ED ROS Narrative Abdominal cramping Constitutional Constitutional ED: Denies chills or fever(s) Eyes Eyes: Denies blurry vision ENT ENT ED: Denies ear pain Cardiovascular Cardiovascular: Denies chest pain Respiratory/Chest Respiratory/Chest: Denies cough Gastrointestinal Gastrointestinal: Reports abdominal pain; Denies constipation, diarrhea, melena, nausea or vomiting Genitourinary Genitourinary ED: Denies dysuria or hematuria Musculoskeletal Musculoskeletal: Denies arthralgias or back pain Integumentary Denies abscess or rash Neurologic Neurologic: Denies headache(s) Psychiatric Psychiatric: Denies anxiety Endocrine Endocrinology: Denies polydipsia Hematologic/Lymphatic Hematologic/Lymphatic: Denies easy bleeding Allergic/Immunologic Allergic/Immunologic ED: Denies mouth swelling EXAM Physical Exam Narrative Exam Narrative: Well-appearing 58-year-old male. Vital signs stable afebrile. H EENT exam unremarkable. Neck nontender no lymphadenopathy. Lungs clear to auscultation bilaterally. Heart regular rate and rhythm rate about 100 no murmur. Chest wall ribs nontender. Abdomen soft nontender. Normal bowel sounds without peritoneal signs. Nondistended bladder. No reproducible pain. Soft. Back nontender. No CVA tenderness. Moving all 4 extremities. Normal strength. Normal range of motion. No edema. He is awake and alert. No focal motor deficits. Const Vital Signs: 05/05/24 08:07 05/05/24 10:06 05/05/24 11:46 Temperature 97.3 F L 98 F Temperature Source Temporal Pulse Rate 103 H 64 64 Respiratory Rate 16 17 17 Blood Pressure 147/101 H 111/79 111/79 Blood Pressure Mean 116 89 89 Pulse Ox 99 99 99 Oxygen Delivery Method Room Air Room Air Positive well nourished and well developed; Negative for obese, cachectic, contractures or unkempt General Appearance ED: well developed and NAD; Negative for unkempt, cachectic, contractures or pallor Nutritional Appearance: Negative for cachectic or obese HEENT Reports moist mucous membranes normocephalic and atraumatic; Negative for trauma or tenderness Eyes PERRL and EOMs intact bilaterally General Eye ED: Negative for pale conjunctiva or scleral icterus Neck no lymphadenopathy, supple and no JVD General: Negative for tenderness Resp normal respiratory effort and clear to auscultation bilaterally Effort and Inspection: Negative for retractions Auscultation: Negative for rales, rhonchi, wheezes or diminished lung sounds Cardio regular rate, regular rhythm, S1 normal heart sound, S2 normal heart sound and no murmurs Rate: Negative for bradycardia or tachycardic Rhythm: Negative for abnormal rhythm Heart Sounds: Negative for other GI non-tender, non-distended and no masses Inspection: Negative for abdominal distention Auscultation: normoactive bowel sounds Palpation: soft; Negative for tender or guarding no CVA tenderness Bladder / Kidney Exam: No CVA tenderness Back/Spine no CVA tenderness General Back: Negative for CVA tenderness Cervical Spine: Negative for cervical spine tenderness Thoracic Spine / Upper Back: Negative for thoracic spinal tenderness Lumbar Spine / Lower Back: Negative for lumbar spinal tenderness Extremity normal to inspection General Extremety ED: Negative for edema, pulses abnormal or tenderness General Extremity: Negative for edema or pulses abnormal Neuro oriented x3, CN's II-XII intact bilaterally, moves all extremities and no focal motor deficits Sensorium / Orientation: alert, oriented to person, oriented to place and oriented to time; Negative for orientation impaired, confused, lethargic or stuporous Motor Exam: strength 5/5 throughout Psych mental status grossly normal Appearance: Negative for unkempt Attitude: No agitated Mood & Affect: anxious; Negative for depressed or tearful Thought Content: normal thought content Skin General Skin Exam: Negative for pallor Lesions: no lesions Rashes: no rashes MDM MDM MDM Narrative Medical decision making narrative: 58-year-old male with abdominal cramping. Benign exam. Is here requesting a CAT scan which will be done explained to him I am not sure if cannot show anything. He had a normal urinalysis yesterday Repeat exam patient doing well at 11:50 AM. Abdomen benign. We discussed his results. He will be treated for diverticulitis. Placed on Augmentin 875 twice daily for 10 days. Outpatient follow-up. Return if worse. He will be given his first dose of Augmentin here. History & Record Review Discussion w/independent historian: Patient Additional record(s) reviewed:: Prior inpatient record, Prior outpatient record and Prior ED visit Lab Data Attestation: I reviewed the patient's lab results. Lab results narrative: CBC white count of 4. H&H 13 and 39. Platelets 182. Electrolytes show gap 8. Normal BUN and creatinine. Glucose 109. Urinalysis from the other day was normal. CAT scan of the abdomen shows mild sigmoid diverticulitis Labs: Laboratory Results - last 24 hr 05/05/24 08:40 WBC 4.7 RBC 4.30 L Hgb 13.5 Hct 39.7 L MCV 92.3 MCH 31.4 MCHC 34.0 RDW Std Deviation 41.9 RDW Coeff of Liana 12.4 Plt Count 182 MPV 9.1 Immature Gran % (Auto) 0.200 Neut % (Auto) 59.1 Lymph % (Auto) 30.0 Rolette % (Auto) 6.6 Eos % (Auto) 3.0 Baso % (Auto) 1.1 H Absolute Neuts (auto) 2.8 Absolute Lymphs (auto) 1.41 Nucleated RBC % 0 Sodium 139 Potassium 3.9 Chloride 107 Carbon Dioxide 24.0 Anion Gap 8 BUN 13 Creatinine 0.89 Estim Creat Clear Calc 84.94 Est GFR (MDRD) Af Amer 112 Est GFR (MDRD) Non-Af 92 BUN/Creatinine Ratio 14.6 Glucose 109 H Calcium 9.5 Radiography Diagnostic Testing: Clinical Impression(s) from Imaging Studies Abdomen/Pelvis CT 05/05/24 08:35 IMPRESSION: Sigmoid diverticulosis and possible mild sigmoid diverticulitis. Small amount of free fluid is seen in the right hemipelvis. Electronically Signed: Raza Momin MD at 9:28 EDT , Discharge Plan Triage Chief Complaint: Complaint ED Provider: Damien Petit Dx/Rx/DC Orders Clinical Impression: Abdominal pain, Diverticulitis Instructions: ED Diverticulitis Prescriptions: New amoxicillin-pot clavulanate 875-125 mg tablet 1 tab PO BID 10 Days Qty: 20 0RF No Action ondansetron [ondansetron] 4 mg tablet,disintegrating 4 mg PO Q8H PRN PRN (Reason: Nausea) Qty: 10 0RF hydrocodone-acetaminophen 5-325 mg tablet 1 tab PO Q6H PRN (Reason: pain) 3 Days Qty: 10 0RF tamsulosin 0.4 mg capsule 0.4 mg PO QHS Primary Care Provider: Osmin Patel Referrals: Osmin Patel MD [Primary Care Provider] - 1 Week if not improving Activity Restrictions/Additional Instructions: You have diverticulitis which is inflammation of outpouchings of your colon down by your rectum. That could be causing her discomfort. You will be placed on antibiotic Augmentin 1 pill twice a day at breakfast and dinner. For the next 10 days. Follow-up with your doctor to ensure you are improving. Print Language: Kazakh Disposition Disposition: Home, Self Care
[2024-05-05 08:47] LABS: Absolute Lymphocyte Count 1.41 X10^3/uL (0.83-4.51); Absolute Neutrophil Count 2.8 X10^3/uL (2.0-7.7); Basophil# 0.05 X10^3/uL; Basophil% 1.1 % (0-1); Eosinophil# 0.14 X10^3/uL; Hematocrit 39.7 % (40-54); Hemoglobin 13.5 g/dL (13.0-16.5); Lymphocyte # 1.41 X10^3/ul (0.83-4.51); Mean Corpuscular Hgb 31.4 pg (27.0-32.0); Mean Corpuscular Volume 92.3 fL (80-94); Mean Platelet Vol. 9.1 fl (6.2-12.0); Monocyte# 0.31 X10^3/uL; Monocyte% 6.6 % (0-10); NRBC Flagged by Analyzer 0 % (0-5); Neutrophil # 2.78 X10^3/uL (2.7-7.7); Neutrophil % 59.1 % (47-70); Platelet Count 182 K/mm3 (150-450); RBC Distribution Width CV 12.4 % (11.6-14.6); RBC Distribution Width SD 41.9 fl (35.1-43.9); White Blood Count 4.7 K/mm3 (4.4-11.0)
--- NOTE | 2024-05-05 08:48 | ED.RN ---
PT DESCRIBES FEELING VERY THIRSTY AND CANNOT QUENCH HIS THIRST. NO PALPABLE BLADDER DISTENTION AT THIS TIME. DOES NOT FEEL LIKE HE EMPTIES HIS BLADDER EACH TIME HE GOES.
[2024-05-05 09:00] LABS: Anion Gap 8 (5-15); BUN 13 mg/dL (7-18); BUN/Creat Ratio 14.6 RATIO (10-20); Calcium,Total 9.5 mg/dL (8.5-10.1); Chloride 107 mmol/L (98-107); Creatinine, Serum 0.89 mg/dL (0.70-1.30); EST Glomerular Filtration Rate 92 mL/min (>60); Est Glom Filt Rate - Afr Amer 112 mL/min (>60); Estimated Creatinine Clearance 84.94 ml/min; Glucose 109 mg/dL (74-106); Potassium 3.9 mmol/L (3.5-5.1); Sodium Level 139 mmol/L (136-145)
[2024-05-05 10:06] VITALS: BP 111/79; PULSE 64; RESP 17; O2SAT 99
[2024-05-05 11:46] VITALS: BP 111/79; PULSE 64; RESP 17; TEMP 36.6; O2SAT 99
[2024-05-05] MEDS: Amox/Clavulanate 875 MG Tablet PO (11:51)
== END 2024-05-05 11:55 | disposition home or self-care (01) ==
PROVIDERS: Emergency Provider Emergency Medicine; PCP Family Medicine; Visit Provider Emergency Medicine
DX: K57.92 Diverticulitis of intestine, part unspecified, without perforation or abscess without bleeding (principal); N40.0 Benign prostatic hyperplasia without lower urinary tract symptoms; Z79.899 Other long term (current) drug therapy
CPT/HCPCS: 74177; 80048; 85025; 99283; Q9967; A4216